=== PATIENT | male | born 1960 | race Caucasian/White ===

== ENCOUNTER 2017-09-09 10:59 | Emergency (ER) | payer OTHER ==
[~2017-09-09] VITALS: Ht 172.7 cm; Wt 65.9 kg
[2017-09-09] MEDS ORDERED: TYLENOL WITH C1 EACH PO (13:21)
[2017-09-09] MEDS ORDERED: PEN-VEE K,VEET500 MG PO (13:21)
[2017-09-09 13:34] VITALS: BP 116/88
== END 2017-09-09 13:35 | disposition home or self-care (01) ==
LOC: EME 10:59
DX: K08.89 Other specified disorders of teeth and supporting structures (principal); F17.200 Nicotine dependence, unspecified, uncomplicated
CPT/HCPCS: 99281; 99283